=== PATIENT | male | born 2000 | race African-American/Black ===

== ENCOUNTER 2020-06-18 00:20 | Emergency (ER) | payer SELFPAY ==
[2020-06-18 00:53] LABS: #Basophils 0.1 thou/uL (0.0-0.2); #Eosinphils 0.1 thou/uL (0.0-0.7); #Lymphocytes 2.1 thou/uL (1.20-3.40); #Monocytes 0.7 thou/uL (0.11-0.59); #Neutrophils 8.2 thou/uL (1.40-6.50); %Basophils 1.2 % (0.0-1.0); %Eosinophils 0.7 % (0.0-10.0); %Lymphocytes 18.5 % (28.0-48.0); %Monocytes 6.1 % (0.0-4.0); %Neutrophils 73.5 % (31.0-61.0); Mean Corpuscular HGB CONC 32.4 g/dL (32.0-36.0); Mean Corpuscular Hemoglobin 29.9 pg (25.0-35.0); Mean Corpuscular Volume 92.2 fL (78.0-98.0); Mean Platelet Volume 9.7 fL (7.4-10.4); Platelet Count 214 thou/uL (130-400); RBC Distribution Width 10.7 % (11.5-14.5); Red Blood Cell (RBC) Count 5.02 mill/uL (4.00-5.20); White Blood Cell (WBC) Count 11.2 thou/uL (4.8-10.8)
[2020-06-18 01:07] LABS: ALT (SGPT) 24 U/L (8-55); AST (SGOT) 24 U/L (10-45); Albumin 4.5 g/dL (3.5-5.0); Alkaline Phosphatase 92 U/L (50-130); Anion Gap 12 mmol/L (10-20); BUN (Urea Nitrogen) 12 mg/dL (8.4-21.0); Bilirubin, Total 0.6 mg/dL (0.2-1.2); Calc. Creatinine Clearance 0 mL/min (70-130); Calcium 9.2 mg/dL (7.8-10.44); Carbon Dioxide 23 mmol/L (22-29); Chloride 106 mmol/L (98-107); Estimated GFR-MDRD 79; Globulin 2.7 g/dL (2.4-3.5); Glucose 108 mg/dL (70-105); Potassium 3.4 mmol/L (3.5-5.1); Protein, Total 7.2 g/dL (6.0-8.3); Sodium 138 mmol/L (136-145)
[2020-06-18] MEDS ORDERED: traMADol HCl 50 MG TAB ONE (01:20)
[2020-06-18] MEDS ORDERED: Iopamidol 370 76% 100 ML VIAL ONE (09:00)
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
--- NOTE | 2020-06-18 11:00 | RAD ---
RIGHT SHOULDER RADIOGRAPHS THREE VIEWS: 06/18/20 PROVIDED CLINICAL HISTORY: Pain status post injury. FINDINGS: There is no evidence for fracture or other acute osseous abnormality. If there is persistent clinical concern, conservative management and follow-up imaging are advised. IMPRESSION: As above. POS: GENIE
--- NOTE | 2020-06-18 11:01 | RAD ---
LEFT HAND RADIOGRAPHS THREE VIEWS: 06/18/20 PROVIDED CLINICAL HISTORY: Pain status post injury. FINDINGS: There is an obliquely oriented, mildly displaced fracture involving the fourth metacarpal shaft. No a dditional fracture is evident. Alignment appears otherwise anatomic. Joint spaces appear preserved. IMPRESSION: Fourth metacarpal fracture. POS: GENIE
== END 2020-06-18 01:30 ==
LOC: NAV ERS 00:20
DX: S62.325A Displaced fracture of shaft of fourth metacarpal bone, left hand, initial encounter for closed fracture (principal); S32.019A Unspecified fracture of first lumbar vertebra, initial encounter for closed fracture; V43.52XA Car driver injured in collision with other type car in traffic accident, initial encounter
CPT/HCPCS: 29125; 71260; 72125; 74177; 80053; 85025; Q9967